=== PATIENT | female | born 1965 | race Caucasian/White ===

== ENCOUNTER 2018-03-01 12:02 | Inpatient (IN) | payer MEDICAID ==
[2018-03-01 12:58] LABS: ADD MAN DIFF? NO
[2018-03-01 13:04] LABS: WHITE BLOOD COUNT 14.7 10^3/ul (4.8-10.8)
[2018-03-01 13:04] LABS: BASOPHILS % 0.3 % (0.0-2.0); EOSINOPHILS % 0.1 % (0.0-7.0); HEMATOCRIT 40.2 % (37.0-47.0); HEMOGLOBIN 13.7 g/dl (12.0-16.0); LYMPHOCYTES # 2.5 10^3/ul (0.8-2.9); LYMPHOCYTES % 17.2 % (15.0-51.0); MEAN CORPUSCULAR HEMOGLOBIN 29.7 pg (29.0-33.0); MEAN CORPUSCULAR HGB CONC 34.1 g/dl (32.0-37.0); MEAN CORPUSCULAR VOLUME 87.2 fl (82.0-101.0); MEAN PLATELET VOLUME 10.4 fl (7.4-10.4); MONOCYTE # 0.8 10^3/ul (0.3-0.9); MONOCYTES % 5.7 % (0.0-11.0); NEUTROPHIL # 11.2 10^3/ul (1.6-7.5); NEUTROPHILS % 76.4 % (39.0-77.0); PLATELET COUNT 296 10^3/UL (140-415); RED BLOOD COUNT 4.61 10^6/ul (4.20-5.40); RED CELL DISTRIBUTION WIDTH 12.1 % (11.5-14.5)
[2018-03-01 13:12] LABS: ADD UMIC YES; UR ASCORBIC ACID NEGATIVE (NEGATIVE); UR BILIRUBIN (Dip) NEGATIVE (NEGATIVE); UR BLOOD (Dip) 1+ mg/dL (NEGATIVE); UR CLARITY CLEAR (CLEAR); UR COLOR YELLOW (YELLOW); UR GLUCOSE (Dip) NEGATIVE (NEGATIVE); UR KETONES (Dip) TRACE mg/dL (NEGATIVE); UR LEUKOCYTE ESTERASE (Dip) TRACE Leu/ul (NEGATIVE); UR NITRITE (Dip) NEGATIVE (NEGATIVE); UR RBC 1 /HPF (0-5); UR SPECIFIC GRAVITY (Dip) 1.015 (1.003-1.030); UR TOTAL PROTEIN (Dip) NEGATIVE (NEGATIVE); UR UROBILINOGEN (Dip) 2+ mg/dL (NEGATIVE); UR WBC 4 /HPF (0-5)
[2018-03-01] MEDS: ONDANSETRON 4 MG INJ IV ×2 (13:21→20:52)
[2018-03-01] MEDS: morphine 4 MG/ML VIAL IV (13:21)
[2018-03-01] MEDS: ACETAMINOPHEN 325 MG TAB PO ×2 (13:21→18:55)
[2018-03-01 13:22] LABS: ALANINE AMINOTRANSFERASE 23 IU/L (13-69); ALBUMIN 3.9 g/dl (3.3-4.9); ALBUMIN/GLOBULIN RATIO 0.95; ALKALINE PHOSPHATASE 108 IU/L (42-121); ANION GAP 8 (5-13); ASPARTATE AMINO TRANSFERASE 17 IU/L (15-46); BILIRUBIN,INDIRECT 0.5 mg/dl (0-1.1); BILIRUBIN,TOTAL 0.5 mg/dl (0.2-1.3); BLOOD UREA NITROGEN 8 mg/dl (7-20); CALCIUM 9.1 mg/dl (8.4-10.2); CARBON DIOXIDE 30 mmol/L (21-31); CHLORIDE 100 mmol/L (97-110); CREATININE 0.71 mg/dl (0.44-1.00); Estimated GFR > 60 mL/min (>60); GLUCOSE 139 mg/dl (70-220); LIPASE 72 U/L (23-300); POTASSIUM 3.9 mmol/L (3.5-5.1); SODIUM 138 mmol/L (135-144)
[2018-03-01] MEDS: SODIUM CHLORIDE 0.9% 1L BAG IV* (13:22)
[2018-03-01 13:23] LABS: INR 1.13; PROTIME 14.7 Sec (11.9-14.9); PT RATIO 1.1
[2018-03-01] MEDS: PIPER-TAZO 3.375 GM IV (PMX) 100 ML IVPB ×2 (13:23→20:45)
[2018-03-01 13:24] LABS: PARTIAL THROMBOPLASTIN TIME 38.1 Sec (23.0-35.0)
[2018-03-01 13:33] LABS: TROPONIN-I < 0.012 ng/ml (0.000-0.120)
[2018-03-01] MEDS ORDERED: ACETAMINOPHEN 325 MG TAB PO (14:30)
[2018-03-01] MEDS ORDERED: ONDANSETRON 4 MG INJ IV (14:30)
[2018-03-01] MEDS ORDERED: NACL 0.9% 3 ML SYG IV (16:30)
[2018-03-01 16:57] LABS: LACTIC ACID 0.8 mmol/L (0.5-2.0)
[2018-03-01] MEDS: D5W-0.45 NACL + KCL 20 MEQ 1,000 ML IV (20:42)
[2018-03-01] MEDS: FAMOTIDINE 20 MG INJ IV (20:42)
[2018-03-01] MEDS: morphine SULFATE/PF (2 MG/2 ML) SYG IV (20:51)
[2018-03-02] MEDS: HYDROCODONE/APAP (5/325) TAB PO ×2 (00:35→17:01)
[2018-03-02] MEDS: morphine SULFATE/PF (2 MG/2 ML) SYG IV ×3 (01:14→18:14)
[2018-03-02] MEDS: ACETAMINOPHEN 325 MG TAB PO ×2 (03:11→20:46)
[2018-03-02] MEDS: PIPER-TAZO 3.375 GM IV (PMX) 100 ML IVPB ×3 (06:00→21:57)
[2018-03-02 06:38] LABS: ADD MAN DIFF? NO
[2018-03-02 06:45] LABS: BASOPHILS % 0.3 % (0.0-2.0); EOSINOPHILS % 0.3 % (0.0-7.0); HEMOGLOBIN 11.8 g/dl (12.0-16.0); LYMPHOCYTES % 16.4 % (15.0-51.0); MEAN CORPUSCULAR HEMOGLOBIN 29.4 pg (29.0-33.0); MEAN CORPUSCULAR HGB CONC 32.8 g/dl (32.0-37.0); MEAN CORPUSCULAR VOLUME 89.6 fl (82.0-101.0); MONOCYTE # 0.9 10^3/ul (0.3-0.9); MONOCYTES % 7.5 % (0.0-11.0); NEUTROPHILS % 75.2 % (39.0-77.0); PLATELET COUNT 262 10^3/UL (140-415); RED BLOOD COUNT 4.02 10^6/ul (4.20-5.40); RED CELL DISTRIBUTION WIDTH 11.9 % (11.5-14.5)
[2018-03-02 06:45] LABS: WHITE BLOOD COUNT 11.9 10^3/ul (4.8-10.8)
[2018-03-02] MEDS: D5W-0.45 NACL + KCL 20 MEQ 1,000 ML IV (07:00)
[2018-03-02 07:18] LABS: ANION GAP 6 (5-13); BLOOD UREA NITROGEN 6 mg/dl (7-20); CALCIUM 8.3 mg/dl (8.4-10.2); CARBON DIOXIDE 30 mmol/L (21-31); CHLORIDE 103 mmol/L (97-110); CREATININE 0.79 mg/dl (0.44-1.00); Estimated GFR > 60 mL/min (>60); GLUCOSE 140 mg/dl (70-220); POTASSIUM 4.1 mmol/L (3.5-5.1); SODIUM 139 mmol/L (135-144)
[2018-03-02] MEDS ORDERED: ROCURONIUM 50 MG INJ (07:48)
[2018-03-02] MEDS ORDERED: MIDAZOLAM 1 MG/ML 2 ML INJ (07:48)
[2018-03-02] MEDS ORDERED: PROPOFOL 20 ML (07:48)
[2018-03-02] MEDS ORDERED: FENTAnyl 50 MCG/ML VIAL ×2 (07:48→08:15)
[2018-03-02] MEDS ORDERED: ROPIVACAINE 0.2% 20 ML VIAL (07:49)
[2018-03-02] MEDS ORDERED: DEXAMETHASONE 4 MG/ML 5 ML INJ (08:15)
[2018-03-02] MEDS ORDERED: CEFAZOLIN 1 GM INJ (08:15)
[2018-03-02] MEDS ORDERED: METOCLOPRAMIDE 10 MG INJ (08:15)
[2018-03-02] MEDS ORDERED: KETOROLAC 30 MG INJ (08:15)
[2018-03-02] MEDS ORDERED: ONDANSETRON 4 MG INJ (08:15)
[2018-03-02] MEDS: BUPIVACAINE 0.5%/EPI (SDV) 30 ML INJ (08:26)
[2018-03-02] MEDS ORDERED: METOCLOPRAMIDE 10 MG INJ IV (08:30)
[2018-03-02] MEDS ORDERED: DIPHENHYDRAMINE 50 MG INJ IV (08:30)
[2018-03-02] MEDS ORDERED: LABETALOL HCL 20MG INJ IV (08:30)
[2018-03-02] MEDS ORDERED: HYDROmorphONE 1 MG/5 ML IV SYRINGE IV ×3 (08:30→09:21)
[2018-03-02] MEDS ORDERED: EPHEDrine SULFATE 50 MG/5 ML SYG IV (08:30)
[2018-03-02] MEDS ORDERED: FENTAnyl 50 MCG/ML VIAL IV ×3 (08:30)
[2018-03-02] MEDS ORDERED: NEOSTIGMINE 3 MG/3 ML SYRINGE (08:34)
[2018-03-02] MEDS ORDERED: GLYCOPYRROLATE 1 MG INJ (08:34)
[2018-03-02] MEDS ORDERED: morphine 2 MG INJ IV (09:00)
[2018-03-02] MEDS ORDERED: OXYCODONE/ACETAMINOPHEN (5/325) TAB PO ×2 (09:00)
[2018-03-02] MEDS ORDERED: MEPERIDINE 25 MG INJ (09:21)
[2018-03-02] MEDS: HYDROmorphONE 1 MG/5 ML IV SYRINGE IV (09:27)
[2018-03-02] MEDS: MEPERIDINE 25 MG INJ IV (09:27)
[2018-03-02] MEDS: ONDANSETRON 4 MG INJ IV (09:28)
[2018-03-02] MEDS: FAMOTIDINE 20 MG INJ IV ×2 (11:40→20:31)
[2018-03-02] MEDS: CEPASTAT LOZENGE MT (23:56)
[2018-03-03] MEDS: PIPER-TAZO 3.375 GM IV (PMX) 100 ML IVPB ×3 (05:29→21:46)
[2018-03-03 05:46] LABS: ADD MAN DIFF? NO
[2018-03-03 05:50] LABS: BASOPHILS % 0.2 % (0.0-2.0); HEMATOCRIT 32.8 % (37.0-47.0); LYMPHOCYTES # 1.6 10^3/ul (0.8-2.9); LYMPHOCYTES % 11.4 % (15.0-51.0); MEAN CORPUSCULAR HEMOGLOBIN 29.7 pg (29.0-33.0); MEAN CORPUSCULAR HGB CONC 33.5 g/dl (32.0-37.0); MEAN CORPUSCULAR VOLUME 88.6 fl (82.0-101.0); MEAN PLATELET VOLUME 10.6 fl (7.4-10.4); MONOCYTES % 7.2 % (0.0-11.0); NEUTROPHIL # 11.3 10^3/ul (1.6-7.5); NEUTROPHILS % 80.8 % (39.0-77.0); PLATELET COUNT 306 10^3/UL (140-415)
[2018-03-03 06:07] LABS: ANION GAP 7 (5-13); BLOOD UREA NITROGEN 13 mg/dl (7-20); CALCIUM 8.8 mg/dl (8.4-10.2); CARBON DIOXIDE 30 mmol/L (21-31); CHLORIDE 101 mmol/L (97-110); CREATININE 0.87 mg/dl (0.44-1.00); Estimated GFR > 60 mL/min (>60); GLUCOSE 205 mg/dl (70-220); MAGNESIUM 2.2 mg/dl (1.7-2.5); PHOSPHORUS 4.6 mg/dl (2.5-4.9); POTASSIUM 4.5 mmol/L (3.5-5.1); SODIUM 138 mmol/L (135-144)
[2018-03-03] MEDS: FAMOTIDINE 20 MG INJ IV ×2 (09:17→20:24)
[2018-03-03] MEDS: OXYCODONE/ACETAMINOPHEN (5/325) TAB PO (12:15)
[2018-03-03] MEDS: ONDANSETRON 4 MG INJ IV ×2 (14:25→20:24)
[2018-03-03] MEDS: morphine SULFATE/PF (2 MG/2 ML) SYG IV (15:15)
[2018-03-03] MEDS: SOD CHLORIDE 0.9% 500 ML IV (23:46)
[2018-03-03] MEDS: HYDROmorphONE 1 MG/ML SYG IV (23:47)
[2018-03-04 05:06] LABS: ADD MAN DIFF? NO
[2018-03-04 05:09] LABS: BASOPHIL # 0.1 10^3/ul (0.0-0.1); BASOPHILS % 0.2 % (0.0-2.0); HEMATOCRIT 37.6 % (37.0-47.0); HEMOGLOBIN 12.6 g/dl (12.0-16.0); LYMPHOCYTES # 2.2 10^3/ul (0.8-2.9); LYMPHOCYTES % 9.7 % (15.0-51.0); MEAN CORPUSCULAR HEMOGLOBIN 29.5 pg (29.0-33.0); MEAN CORPUSCULAR HGB CONC 33.5 g/dl (32.0-37.0); MEAN CORPUSCULAR VOLUME 88.1 fl (82.0-101.0); MEAN PLATELET VOLUME 11.1 fl (7.4-10.4); MONOCYTE # 1.2 10^3/ul (0.3-0.9); MONOCYTES % 5.3 % (0.0-11.0); NEUTROPHIL # 18.7 10^3/ul (1.6-7.5); NEUTROPHILS % 84.4 % (39.0-77.0); PLATELET COUNT 413 10^3/UL (140-415); RED BLOOD COUNT 4.27 10^6/ul (4.20-5.40); RED CELL DISTRIBUTION WIDTH 12.1 % (11.5-14.5)
[2018-03-04 05:09] LABS: WHITE BLOOD COUNT 22.2 10^3/ul (4.8-10.8)
[2018-03-04 05:37] LABS: ANION GAP 11 (5-13); BLOOD UREA NITROGEN 30 mg/dl (7-20); CALCIUM 8.7 mg/dl (8.4-10.2); CARBON DIOXIDE 26 mmol/L (21-31); CHLORIDE 102 mmol/L (97-110); CREATININE 1.06 mg/dl (0.44-1.00); Estimated GFR 54 mL/min (>60); GLUCOSE 236 mg/dl (70-220); MAGNESIUM 2.3 mg/dl (1.7-2.5); PHOSPHORUS 5.5 mg/dl (2.5-4.9); POTASSIUM 4.5 mmol/L (3.5-5.1); SODIUM 139 mmol/L (135-144)
[2018-03-04] MEDS: PIPER-TAZO 3.375 GM IV (PMX) 100 ML IVPB (05:40)
[2018-03-04] MEDS: ONDANSETRON 4 MG INJ IV ×3 (07:21→22:56)
[2018-03-04] MEDS: FAMOTIDINE 20 MG INJ IV (08:46)
[2018-03-04] MEDS: SOD CHLORIDE 0.9% 1,000 ML IV ×2 (08:51→19:54)
[2018-03-04 09:43] LABS: LACTIC ACID 2.4 mmol/L (0.5-2.0)
[2018-03-04] MEDS: MEROPENEM 1 GM/50ML(PMX) 50 ML IVPB ×2 (14:25→21:17)
[2018-03-04] MEDS ORDERED: morphine LIQ (10 MG/5 ML) CUP PO (16:30)
[2018-03-04] MEDS: SUCRALFATE (100 MG/ML) 10ML CUP PO ×2 (17:42→19:54)
[2018-03-04] MEDS: CEPASTAT LOZENGE MT (19:54)
[2018-03-04] MEDS: OXYCODONE/ACETAMINOPHEN (5/325) TAB PO (21:44)
[2018-03-05] MEDS: PANTOPRAZOLE 40 MG INJ IV (05:43)
[2018-03-05] MEDS: MEROPENEM 1 GM/50ML(PMX) 50 ML IVPB ×3 (05:43→21:13)
[2018-03-05 06:41] LABS: ADD MAN DIFF? NO
[2018-03-05 06:45] LABS: WHITE BLOOD COUNT 16.2 10^3/ul (4.8-10.8)
[2018-03-05 06:45] LABS: BASOPHILS % 0.2 % (0.0-2.0); EOSINOPHILS % 0.1 % (0.0-7.0); HEMATOCRIT 34.6 % (37.0-47.0); HEMOGLOBIN 11.5 g/dl (12.0-16.0); LYMPHOCYTES # 3.2 10^3/ul (0.8-2.9); MEAN CORPUSCULAR HEMOGLOBIN 29.1 pg (29.0-33.0); MEAN CORPUSCULAR HGB CONC 33.2 g/dl (32.0-37.0); MEAN CORPUSCULAR VOLUME 87.6 fl (82.0-101.0); MEAN PLATELET VOLUME 10.4 fl (7.4-10.4); MONOCYTE # 1.1 10^3/ul (0.3-0.9); MONOCYTES % 6.8 % (0.0-11.0); NEUTROPHIL # 11.7 10^3/ul (1.6-7.5); NEUTROPHILS % 72.2 % (39.0-77.0); PLATELET COUNT 447 10^3/UL (140-415); RED BLOOD COUNT 3.95 10^6/ul (4.20-5.40); RED CELL DISTRIBUTION WIDTH 12.1 % (11.5-14.5)
[2018-03-05 07:12] LABS: ALANINE AMINOTRANSFERASE 23 IU/L (13-69); ALBUMIN 2.6 g/dl (3.3-4.9); ALBUMIN/GLOBULIN RATIO 0.92; ALKALINE PHOSPHATASE 68 IU/L (42-121); ANION GAP 7 (5-13); ASPARTATE AMINO TRANSFERASE 14 IU/L (15-46); BILIRUBIN,INDIRECT 0.2 mg/dl (0-1.1); BILIRUBIN,TOTAL 0.2 mg/dl (0.2-1.3); BLOOD UREA NITROGEN 25 mg/dl (7-20); CARBON DIOXIDE 28 mmol/L (21-31); CHLORIDE 103 mmol/L (97-110); CREATININE 0.75 mg/dl (0.44-1.00); Estimated GFR > 60 mL/min (>60); GLUCOSE 159 mg/dl (70-220); POTASSIUM 4.2 mmol/L (3.5-5.1); SODIUM 138 mmol/L (135-144); TOTAL PROTEIN 5.4 g/dl (6.1-8.1)
[2018-03-05 07:18] LABS: MAGNESIUM 2.2 mg/dl (1.7-2.5)
[2018-03-05] MEDS: SUCRALFATE (100 MG/ML) 10ML CUP PO ×4 (08:24→21:13)
[2018-03-05] MEDS: SOD CHLORIDE 0.9% 1,000 ML IV (11:13)
[2018-03-05] MEDS: OXYCODONE/ACETAMINOPHEN (5/325) TAB PO (13:47)
[2018-03-05] MEDS: ONDANSETRON 4 MG INJ IV (21:14)
[2018-03-06] MEDS: OXYCODONE/ACETAMINOPHEN (5/325) TAB PO ×2 (00:07→21:31)
[2018-03-06] MEDS: PANTOPRAZOLE (EC) 40 MG TAB PO (05:03)
[2018-03-06] MEDS: MEROPENEM 1 GM/50ML(PMX) 50 ML IVPB ×2 (05:03→16:52)
[2018-03-06 07:40] LABS: ADD MAN DIFF? NO
[2018-03-06 07:44] LABS: WHITE BLOOD COUNT 14.8 10^3/ul (4.8-10.8)
[2018-03-06 07:44] LABS: BASOPHILS % 0.2 % (0.0-2.0); EOSINOPHILS # 0.1 10^3/ul (0.0-0.5); EOSINOPHILS % 0.5 % (0.0-7.0); HEMATOCRIT 31.4 % (37.0-47.0); HEMOGLOBIN 10.6 g/dl (12.0-16.0); LYMPHOCYTES # 2.7 10^3/ul (0.8-2.9); MEAN CORPUSCULAR HEMOGLOBIN 29.4 pg (29.0-33.0); MEAN CORPUSCULAR HGB CONC 33.8 g/dl (32.0-37.0); MEAN CORPUSCULAR VOLUME 87.2 fl (82.0-101.0); MEAN PLATELET VOLUME 10.4 fl (7.4-10.4); MONOCYTE # 1.1 10^3/ul (0.3-0.9); MONOCYTES % 7.3 % (0.0-11.0); NEUTROPHIL # 10.7 10^3/ul (1.6-7.5); NEUTROPHILS % 72.5 % (39.0-77.0); PLATELET COUNT 437 10^3/UL (140-415); RED CELL DISTRIBUTION WIDTH 12.3 % (11.5-14.5)
[2018-03-06 08:07] LABS: ANION GAP 7 (5-13); BLOOD UREA NITROGEN 17 mg/dl (7-20); CALCIUM 8.1 mg/dl (8.4-10.2); CARBON DIOXIDE 28 mmol/L (21-31); CHLORIDE 100 mmol/L (97-110); CREATININE 0.65 mg/dl (0.44-1.00); Estimated GFR > 60 mL/min (>60); GLUCOSE 138 mg/dl (70-220); MAGNESIUM 2.1 mg/dl (1.7-2.5); PHOSPHORUS 3.3 mg/dl (2.5-4.9); POTASSIUM 4.3 mmol/L (3.5-5.1); SODIUM 135 mmol/L (135-144)
[2018-03-06] MEDS: SUCRALFATE (100 MG/ML) 10ML CUP PO ×4 (08:34→20:35)
[2018-03-06] MEDS ORDERED: metroNIDAZOLE 500 MG/NS (PMX) 100 ML IVPB (14:00)
[2018-03-06] MEDS: ONDANSETRON 4 MG INJ IV (14:17)
[2018-03-06] MEDS: CIPROFLOXACIN 400MG/D5W 200 ML IVPB (14:17)
[2018-03-06] MEDS: CEPASTAT LOZENGE MT (18:48)
[2018-03-07] MEDS: MEROPENEM 1 GM/50ML(PMX) 50 ML IVPB ×3 (00:18→20:06)
[2018-03-07] MEDS: DOCUSATE SODIUM 100 MG CAP PO (05:42)
[2018-03-07] MEDS: MAGNESIUM HYDROXIDE 30ML CUP PO (05:42)
[2018-03-07] MEDS: PANTOPRAZOLE (EC) 40 MG TAB PO (05:42)
[2018-03-07 05:53] LABS: ADD MAN DIFF? NO
[2018-03-07 06:03] LABS: BASOPHIL # 0.1 10^3/ul (0.0-0.1); BASOPHILS % 0.3 % (0.0-2.0); EOSINOPHILS # 0.2 10^3/ul (0.0-0.5); EOSINOPHILS % 1.5 % (0.0-7.0); HEMOGLOBIN 10.8 g/dl (12.0-16.0); LYMPHOCYTES # 3.2 10^3/ul (0.8-2.9); LYMPHOCYTES % 20.6 % (15.0-51.0); MEAN CORPUSCULAR HEMOGLOBIN 29.6 pg (29.0-33.0); MEAN CORPUSCULAR HGB CONC 33.8 g/dl (32.0-37.0); MEAN CORPUSCULAR VOLUME 87.7 fl (82.0-101.0); MEAN PLATELET VOLUME 10.2 fl (7.4-10.4); MONOCYTES % 6.5 % (0.0-11.0); NEUTROPHIL # 10.8 10^3/ul (1.6-7.5); NEUTROPHILS % 69.4 % (39.0-77.0); PLATELET COUNT 457 10^3/UL (140-415); RED BLOOD COUNT 3.65 10^6/ul (4.20-5.40); RED CELL DISTRIBUTION WIDTH 12.3 % (11.5-14.5)
[2018-03-07 06:03] LABS: WHITE BLOOD COUNT 15.5 10^3/ul (4.8-10.8)
[2018-03-07 06:28] LABS: ANION GAP 8 (5-13); BLOOD UREA NITROGEN 13 mg/dl (7-20); CALCIUM 8.4 mg/dl (8.4-10.2); CARBON DIOXIDE 30 mmol/L (21-31); CHLORIDE 97 mmol/L (97-110); CREATININE 0.65 mg/dl (0.44-1.00); Estimated GFR > 60 mL/min (>60); GLUCOSE 129 mg/dl (70-220); PHOSPHORUS 3.5 mg/dl (2.5-4.9); POTASSIUM 4.4 mmol/L (3.5-5.1); SODIUM 135 mmol/L (135-144)
[2018-03-07] MEDS: SUCRALFATE (100 MG/ML) 10ML CUP PO ×4 (09:00→20:06)
[2018-03-08] MEDS: ACETAMINOPHEN 325 MG TAB PO ×2 (00:26→15:53)
[2018-03-08] MEDS: PANTOPRAZOLE (EC) 40 MG TAB PO (05:04)
[2018-03-08 06:24] LABS: ADD MAN DIFF? NO
[2018-03-08 06:38] LABS: BASOPHILS % 0.3 % (0.0-2.0); EOSINOPHILS # 0.2 10^3/ul (0.0-0.5); EOSINOPHILS % 1.3 % (0.0-7.0); HEMATOCRIT 29.8 % (37.0-47.0); HEMOGLOBIN 9.9 g/dl (12.0-16.0); LYMPHOCYTES # 2.4 10^3/ul (0.8-2.9); LYMPHOCYTES % 17.8 % (15.0-51.0); MEAN CORPUSCULAR HEMOGLOBIN 29.5 pg (29.0-33.0); MEAN CORPUSCULAR HGB CONC 33.2 g/dl (32.0-37.0); MEAN CORPUSCULAR VOLUME 88.7 fl (82.0-101.0); MONOCYTE # 0.8 10^3/ul (0.3-0.9); NEUTROPHIL # 9.9 10^3/ul (1.6-7.5); NEUTROPHILS % 72.8 % (39.0-77.0); PLATELET COUNT 460 10^3/UL (140-415); RED BLOOD COUNT 3.36 10^6/ul (4.20-5.40); RED CELL DISTRIBUTION WIDTH 12.3 % (11.5-14.5)
[2018-03-08 06:38] LABS: WHITE BLOOD COUNT 13.6 10^3/ul (4.8-10.8)
[2018-03-08 06:58] LABS: ANION GAP 8 (5-13); BLOOD UREA NITROGEN 11 mg/dl (7-20); CARBON DIOXIDE 29 mmol/L (21-31); CHLORIDE 99 mmol/L (97-110); CREATININE 0.58 mg/dl (0.44-1.00); Estimated GFR > 60 mL/min (>60); GLUCOSE 111 mg/dl (70-220); MAGNESIUM 2.3 mg/dl (1.7-2.5); PHOSPHORUS 3.7 mg/dl (2.5-4.9); POTASSIUM 4.3 mmol/L (3.5-5.1); SODIUM 136 mmol/L (135-144)
[2018-03-08] MEDS: SUCRALFATE (100 MG/ML) 10ML CUP PO ×4 (08:02→21:01)
[2018-03-08] MEDS: MEROPENEM 1 GM/50ML(PMX) 50 ML IVPB ×2 (08:02→21:01)
[2018-03-09] MEDS ORDERED: GUAIFENESIN 20 MG/ML 5ML CUP PO (00:30)
[2018-03-09] MEDS: SOD CHLORIDE 0.9% 1,000 ML IV ×3 (02:27→15:46)
[2018-03-09] MEDS: SOD CHLORIDE 0.9% 500 ML IV (02:27)
[2018-03-09 05:30] LABS: ADD MAN DIFF? NO
[2018-03-09] MEDS: ACETAMINOPHEN 325 MG TAB PO (05:34)
[2018-03-09 05:38] LABS: BASOPHIL # 0.1 10^3/ul (0.0-0.1); BASOPHILS % 0.5 % (0.0-2.0); EOSINOPHILS # 0.2 10^3/ul (0.0-0.5); EOSINOPHILS % 1.5 % (0.0-7.0); HEMATOCRIT 30.3 % (37.0-47.0); LYMPHOCYTES # 2.2 10^3/ul (0.8-2.9); LYMPHOCYTES % 17.7 % (15.0-51.0); MEAN CORPUSCULAR HEMOGLOBIN 29.5 pg (29.0-33.0); MEAN CORPUSCULAR VOLUME 89.4 fl (82.0-101.0); MEAN PLATELET VOLUME 9.8 fl (7.4-10.4); MONOCYTE # 0.8 10^3/ul (0.3-0.9); NEUTROPHIL # 9.1 10^3/ul (1.6-7.5); NEUTROPHILS % 72.3 % (39.0-77.0); PLATELET COUNT 504 10^3/UL (140-415); RED BLOOD COUNT 3.39 10^6/ul (4.20-5.40); RED CELL DISTRIBUTION WIDTH 12.4 % (11.5-14.5)
[2018-03-09 05:38] LABS: WHITE BLOOD COUNT 12.6 10^3/ul (4.8-10.8)
[2018-03-09 06:11] LABS: ANION GAP 4 (5-13); BLOOD UREA NITROGEN 8 mg/dl (7-20); CARBON DIOXIDE 29 mmol/L (21-31); CHLORIDE 103 mmol/L (97-110); CREATININE 0.54 mg/dl (0.44-1.00); Estimated GFR > 60 mL/min (>60); GLUCOSE 128 mg/dl (70-220); MAGNESIUM 2.1 mg/dl (1.7-2.5); PHOSPHORUS 3.4 mg/dl (2.5-4.9); POTASSIUM 4.1 mmol/L (3.5-5.1); SODIUM 136 mmol/L (135-144)
[2018-03-09] MEDS: PANTOPRAZOLE (EC) 40 MG TAB PO (06:34)
[2018-03-09] MEDS: MEROPENEM 1 GM/50ML(PMX) 50 ML IVPB ×2 (09:23→20:31)
[2018-03-09] MEDS: SUCRALFATE (100 MG/ML) 10ML CUP PO ×4 (09:24→20:30)
[2018-03-09] MEDS: OXYCODONE/ACETAMINOPHEN (5/325) TAB PO (21:07)
[2018-03-10] MEDS: SOD CHLORIDE 0.9% 1,000 ML IV (04:41)
[2018-03-10] MEDS: PANTOPRAZOLE (EC) 40 MG TAB PO (05:53)
[2018-03-10 06:27] LABS: ADD MAN DIFF? NO
[2018-03-10 06:29] LABS: BASOPHIL # 0.1 10^3/ul (0.0-0.1); BASOPHILS % 0.5 % (0.0-2.0); EOSINOPHILS # 0.2 10^3/ul (0.0-0.5); EOSINOPHILS % 2.1 % (0.0-7.0); HEMATOCRIT 29.6 % (37.0-47.0); HEMOGLOBIN 9.6 g/dl (12.0-16.0); LYMPHOCYTES # 2.7 10^3/ul (0.8-2.9); LYMPHOCYTES % 25.6 % (15.0-51.0); MEAN CORPUSCULAR HEMOGLOBIN 28.8 pg (29.0-33.0); MEAN CORPUSCULAR HGB CONC 32.4 g/dl (32.0-37.0); MEAN CORPUSCULAR VOLUME 88.9 fl (82.0-101.0); MEAN PLATELET VOLUME 9.6 fl (7.4-10.4); MONOCYTE # 0.7 10^3/ul (0.3-0.9); MONOCYTES % 6.4 % (0.0-11.0); NEUTROPHIL # 6.7 10^3/ul (1.6-7.5); NEUTROPHILS % 63.6 % (39.0-77.0); PLATELET COUNT 536 10^3/UL (140-415); RED BLOOD COUNT 3.33 10^6/ul (4.20-5.40); RED CELL DISTRIBUTION WIDTH 12.4 % (11.5-14.5)
[2018-03-10 06:29] LABS: WHITE BLOOD COUNT 10.6 10^3/ul (4.8-10.8)
[2018-03-10] MEDS: SUCRALFATE (100 MG/ML) 10ML CUP PO ×2 (09:45→12:10)
[2018-03-10] MEDS: MEROPENEM 1 GM/50ML(PMX) 50 ML IVPB (09:46)
[2018-03-10] MEDS: INFLUENZA VIRUS VACCINE 0.5 ML (DISPENSING) IM* (11:08)
[2018-03-10] MEDS: AMOXICILLIN/CLAV 875 MG TAB PO (12:10)
== END 2018-03-10 12:35 | disposition home or self-care (01) | DRG 853 ==
LOC: TEL 03-06 21:37 → 2NE 03-08 18:49 → TEL 03-04 11:45 → E/R 12:02 → TEL 03-04 21:52 → 2NE 14:17
PROC: 0DTJ0ZZ Resection of Appendix, Open Approach (ICD-10-PCS; principal; 2018-03-02 07:30)
PROC: 0DJD4ZZ Inspection of Lower Intestinal Tract, Percutaneous Endoscopic Approach (ICD-10-PCS; 2018-03-02 07:30)
PROC: 3E0234Z Introduction of Serum, Toxoid and Vaccine into Muscle, Percutaneous Approach (ICD-10-PCS; 2018-03-02 07:50)
DX: A41.9 Sepsis, unspecified organism (principal); K35.33 Acute appendicitis with perforation, localized peritonitis, and gangrene, with abscess; J98.11 Atelectasis; E66.01 Morbid (severe) obesity due to excess calories; Z53.31 Laparoscopic surgical procedure converted to open procedure; Z23 Encounter for immunization
CPT/HCPCS: 36415; 71045; 74176; 76705; 80048; 80053; 81001; 83605; 83690; 83735; 84100; 84484; 85025; 85610; 85730; 87040; 87070; 87086; 88304; 93005; 96365; 96375; 99291-25